=== PATIENT | female | born 1960 | race Caucasian/White ===

== ENCOUNTER 2017-11-03 15:31 | Emergency (ER) | payer SELFPAY, OTHER ==
[2017-11-03] MEDS: KETOROLAC 60 MG INJ IM (16:25)
== END 2017-11-03 16:38 | disposition home or self-care (01) ==
LOC: FTE 15:31
DX: S09.90XA Unspecified injury of head, initial encounter (principal); W18.39XA Other fall on same level, initial encounter; Y92.89 Other specified places as the place of occurrence of the external cause
CPT/HCPCS: 96372; 99284-25